=== PATIENT | female | born 1950 | race Caucasian/White ===

== ENCOUNTER 2017-02-25 08:49 | Day surgery (SDC) | payer MEDICARE, BC ==
[2017-02-24 15:12] LABS: HEMATOCRIT 37.6 % (36.0-48.0); HEMOGLOBIN 12.2 g/dL (12-16); MCH 27.4 pg (26.0-34.0); MCHC 32.4 g/dL (31.0-37.0); MCV 84.3 fL (80.0-100.0); RBC 4.46 10x6/uL (4.00-5.40); RDW 13.8 % (11.5-14.5); WBC 6.6 10x3/uL (4.8-10.8)
[~2017-02-25] VITALS: Ht 170.2 cm; Wt 63.5 kg
--- NOTE | ~2017-02-25 | OP ---
PATIENT NAME: SAMUEL SMART MEDICAL RECORD: [id number] :46 LOCATION:D.OPS ADMISSION DATE: SURGEON: WILFREDO MARAVILLA DPM DATE OF OPERATION: 02/25/2017 PREOPERATIVE DIAGNOSIS: Neuroma, left third interspace. POSTOPERATIVE DIAGNOSIS: Neuroma, left third interspace. PROCEDURE: Neurectomy, left third interspace. ANESTHESIA: Local with IV sedation utilizing lidocaine and Marcaine plain, approximately 15 cc total on the surgical site. HEMOSTASIS: Left ankle tourniquet at 250 mmHg. PREOPERATIVE DETAILS: The patient was taken to the OR, placed on the operating table in supine position. This was followed by induction of general anesthesia and infiltration of local anesthetic. The left extremity was then prepped and draped in usual aseptic technique followed by exsanguination of extremity and inflation of tourniquet. A 15 blade was used to create a 3 cm linear incision over the dorsal aspect of the third interspace down near the base of the third and fourth toe. The incision deepened down through subcutaneous tissue to the intermetatarsal ligament exposing the neuroma. The neuroma was quite large, it was freed bluntly and transected as proximal as possible as well as the distal branches to the third and fourth toe. At this time, the wound was infiltrated with lidocaine with epinephrine. The tourniquet was deflated. Excellent hemostasis was noted and the wound was closed wet utilizing 4-0 Rapide to close the subcutaneous tissue and 4-0 Rapide to close the skin in a subcuticular technique followed by Dermabond, Adaptic, 4 x 4 and Conform were used to dress the wound followed by an John wrap. The patient tolerated the procedure well and left the OR with vital signs stable and vascular status at preop levels. The patient was transported to recovery per anesthesia in stable condition. TRANSINT:[id number] Voice Confirmation ID: [id number] DOCUMENT ID: [id number] WILFREDO MARAVILLA DPM CC: [id number] DICTATION DATE: 02/25/17 1157 UPSETTER HELPER: 02/25/17 1606 [facility] 02/25/17 [id number] [place] [address]
[2017-02-25 08:48] VITALS: BP 126/64; Ht 170.2 cm; Wt 63.5 kg
[~2017-02-25 08:49] MED LIST: CALCIUM 500 + D1 TAB PO; MULTIPLE VITAMI1 TA1 PO
--- NOTE | 2017-02-25 12:40 | NUR ---
1215-RECD TO ROOM FROM PACU. ALERT. RESP WITH EASE. POST OP SHOE TO LEFT FOOT, ELEVATED AND ICE APPLIED.
--- NOTE | 2017-02-25 12:40 | NUR ---
1230-FULL LIQUIDS SERVED.
--- NOTE | 2017-02-25 13:10 | NUR ---
1300-UP TO BATHROOM, VOIDED. IV D/C 1305-DISCHARGE INSTRUCTIONS REVIEWED.
== END 2017-02-25 13:15 | disposition home or self-care (01) ==
LOC: D.OPS 08:49 → D.PAN 10:30 → D.OPS 12:30
PROVIDERS: Anesthesiology
DX: G57.82 Other specified mononeuropathies of left lower limb (principal)

== ENCOUNTER 2017-09-30 06:11 | Day surgery (SDC) | payer MEDICARE, BC ==
[~2017-09-30] VITALS: Ht 170.2 cm; Wt 63.0 kg
--- NOTE | ~2017-09-30 | OP ---
PATIENT NAME: SAMUEL SMART MEDICAL RECORD: [id number] :48 LOCATION:D.[facility] ADMISSION DATE: SURGEON: WILFREDO MARAVILLA DPM DATE OF OPERATION: 09/30/2017 PREOPERATIVE DIAGNOSIS: Neuroma, right third interspace. POSTOPERATIVE DIAGNOSIS: Neuroma, right third interspace. PROCEDURE: Neurectomy, right third interspace. ANESTHESIA: General with local infiltrate utilizing lidocaine and Marcaine plain, 9 cc total. HEMOSTASIS: Right ankle tourniquet at 250 mmHg. PATHOLOGY: Specimen sent for gross micro identification. PREOPERATIVE DETAILS: The patient was taken to the OR and placed on the operative table in a supine position. This was followed by induction of general anesthesia and infiltration of local anesthetic. The right extremity was then prepped and draped in the usual aseptic technique followed by exsanguination and inflation of tourniquet. A 15-blade was used to create a 4-cm linear incision over the dorsal aspect of the third interspace extending to the base of the third digit. The incision was deepened down through subcutaneous tissue through the intermetatarsal ligament. The nerve was easily visualized due to the significant enlargement of the nerve. It was freed both distally to the third digit and to the fourth digit. The proper digital nerves were freed and then transected. Dissection was carried back proximal to the metatarsal heads into the third intermetatarsal space. The nerve was freed and then resected and sent in a specimen cup to be sent to pathology. At this time, lidocaine with epinephrine was infiltrated in the wound. The tourniquet was deflated. Adequate hemostasis was noted and the wound was closed wet. The subcutaneous tissue was reapproximated with 4-0 Rapide. The skin was closed with 4-0 Rapide in a subcuticular technique followed by Dermabond. Adaptic, 4 x 4 and Conform were used to dress the wound followed by Coban. Tourniquet was deflated. POSTOPERATIVE DETAILS: The patient tolerated the procedure well and left the OR with vital signs stable and vascular status at preoperative levels. The patient was transported to recovery per anesthesia in stable condition. TRANSINT:[id number] Voice Confirmation ID: [id number] DOCUMENT ID: [id number] WILFREDO MARAVILLA DPM at 0749 CC: [id number] DICTATION DATE: 09/30/17 0944 ASSISTANT MANAGER AIRSIDE OPERATIONS: 09/30/17 1129 [facility] 09/30/17 [facility] [address] [place] [address]
[2017-09-30 07:14] LABS: HEMATOCRIT 38.4 % (36.0-48.0); HEMOGLOBIN 12.5 g/dL (12-16); MCH 27.3 pg (26.0-34.0); MCHC 32.6 g/dL (31.0-37.0); MCV 83.8 fL (80.0-100.0); RBC 4.58 10x6/uL (4.00-5.40); RDW 14.1 % (11.5-14.5); WBC 4.9 10x3/uL (4.8-10.8)
[2017-09-30 07:54] VITALS: BP 121/56; Ht 170.2 cm; Wt 63.0 kg
== END 2017-09-30 11:20 | disposition home or self-care (01) ==
LOC: D.OPS 06:11 → D.PAN 08:30 → D.OPS 11:20
PROVIDERS: Anesthesiology
DX: G57.61 Lesion of plantar nerve, right lower limb (principal); Z01.812 Encounter for preprocedural laboratory examination; Z01.810 Encounter for preprocedural cardiovascular examination